=== PATIENT | male | born 1965 | race Caucasian/White ===

== ENCOUNTER 2019-05-09 14:51 | Inpatient (IN) ==
[2019-05-09] MEDS ORDERED: NS 1,000 ML IV ONE ×3 (15:23→19:18)
[2019-05-09] MEDS ORDERED: HUMULIN R IV ONE ×2 (15:23→18:04)
[2019-05-09] MEDS ORDERED: ZOFRAN IV ONE (15:23)
[2019-05-09 15:41] LABS: ALLEN TEST YES; BE -9.6 mmoll (-3.0-3.0); BLOOD TYPE ARTERIAL; HCO3-(ACT) 17.2 mmoll (20.0-26.0); METHB 1.4 % (0.0-1.5); O2(CT) 20.9 mL/dL (15.0-23.0); O2HB 90.9 % (95.0-99.0); PCO2(98.6) 30 mmHg (35-45); PO2(98.6) 95 mmHg (60-100); SAMPLE BLOOD; SAO2 98.2 % (95.0-100.0); THB 16.3 g/dL (11.5-17.4); pH(98.6) 7.31 (7.35-7.45)
[2019-05-09 15:42] LABS: MODALITY ROOM AIR
--- NOTE | 2019-05-09 15:44 | Diag Imaging Result Doc PS360 ---
EXAM: CHEST-2 VIEWS HISTORY: short of breath TECHNIQUE: Chest two views COMPARISON: 02/23/2016 FINDINGS: The lungs are well expanded. The heart is not enlarged. The vessels are not distended. There are no infiltrates. No pleural effusions. IMPRESSION: No acute abnormality. Electronically signed by Vaughn Morris 05/09/2019 3:41 PM
[2019-05-09 16:59] LABS: URINE SOURCE CLEAN CATCH
[2019-05-09 17:04] LABS: BILIRUBIN URINE NEGATIVE (NEGATIVE); BLOOD URINE NEGATIVE (NEGATIVE); COLOR STRAW; GLUCOSE URINE >1000 mg/dL (NEGATIVE); KETONE URINE 100 mg/dL (NEGATIVE); LEUKOCYTES URINE NEGATIVE (NEGATIVE); NITRITE URINE NEGATIVE (NEGATIVE); PROTEIN URINE NEGATIVE (NEGATIVE); SP GRAVITY URINE 1.034; TURBIDITY URINE CLEAR (CLEAR); UR EPITHELIAL CELLS <10 /HPF (<10); URINE BACTERIA NEGATIVE /HPF; URINE RBC <10 /HPF (<10); URINE WBC <10 /HPF (<10); UROBILINOGEN URINE NORMAL (NORMAL)
[2019-05-09 17:19] LABS: BASO# 0.21 X1000 (0.0-0.2); BASO% 1.6 % (0.0-0.8); EOS# 0.61 X1000 (0.0-0.7); EOS% 4.7 % (0.0-10.0); HEMATOCRIT 46.2 % (42.0-52.0); HEMOGLOBIN 16.1 g/dL (14.0-18.0); IMM GRAN# 0.15 X1000 (0.0-0.04); IMM GRAN% 1.2 % (0.0-0.5); LYMPH# 4.63 X1000 (1.2-3.4); LYMPH% 35.9 % (20.5-51.1); MCH 28.9 PG (27-31); MCHC 34.8 g/dL (33-37); MCV 82.9 FL (81-99); MONO# 0.81 X1000 (0.11-0.59); MONO% 6.3 % (1.7-9.3); NEUT% 50.3 % (42.2-75.2); PLT 332 X1000 (130-400); RBC 5.57 XMIL (4.7-6.1); RDW 13.7 % (11.5-14.5); WBC 12.91 X1000 (4.8-10.8)
[2019-05-09 17:29] LABS: INR 0.88; PROTIME 12.6 Seconds (11.0-16.0)
[2019-05-09 17:54] LABS: AGAP 25; ALB/GLOB RATIO 1.2; ALBUMIN 4.2 g/dL (3.5-5.0); ALKALINE PHOSPHATASE 145 U/L (32-122); BUN 15 mg/dL (8-22); CALCIUM 9.3 mg/dL (8.8-10.2); CHLORIDE 88 mmol/L (98-107); CK PROFILE 52 U/L (24-204); COSMO 288; ESTIMATED GFR > 60; GLUCOSE 652 mg/dL (70-104); GOT 34 U/L (10-34); GPT 46 U/L (10-44); LIPASE 43 U/L (13-60); PHOSPHORUS 4.4 mg/dL (2.7-4.5); POTASSIUM 4.9 mmol/L (3.5-5.1); SODIUM 128 mmol/L (136-145); TCO2 15 mmol/L (25-35); TOTAL BILIRUBIN 0.34 mg/dL (0.20-1.00); TOTAL PROTEIN 7.6 g/dL (6.3-8.3)
[2019-05-09] MEDS ORDERED: HUMULIN R 100 UNIT in NS 100 ML IV SCH ×2 (18:00→18:15)
[2019-05-09 18:01] LABS: ACETONE SERUM SMALL (NEGATIVE)
[2019-05-09] MEDS ORDERED: POTASSIUM CHLORIDE 20 MEQ in NS 100 ML IV PRN (18:04)
[2019-05-09] MEDS ORDERED: D50W SYRINGE IV PRN (18:04)
[2019-05-09] MEDS ORDERED: SODIUM PHOSPHATE 30 MMOL in D5W 250 ML IV PRN (18:04)
[2019-05-09] MEDS ORDERED: MAGNESIUM SULFATE 2 GM/S.W.I. 2 GM/50 ML IVPB IV PRN (18:04)
[2019-05-09] MEDS ORDERED: SODIUM BICARBONATE 8.4% 100 MEQ in STERILE WATER INJ. 500 ML IV PRN (18:04)
[2019-05-09] MEDS ORDERED: ZOFRAN IV PRN (18:04)
[2019-05-09] MEDS ORDERED: D5 NS 1,000 ML IV PRN (18:04)
[2019-05-09] MEDS ORDERED: TYLENOL PO PRN (18:04)
[2019-05-09] MEDS ORDERED: LABETALOL IV ONE (18:05)
--- NOTE | 2019-05-09 18:07 | PROVIDER DOCUMENTATION ---
This chart was entered by Destiney Hogan Scribe, acting as scribe for Vasyl Young MD. HPI-General Adult - General Chief Complaint: DKA ALERT Stated Complaint: BLOOD SUGAR LOW Time Seen by Provider: 05/09/19 15:24 Source: patient Allergies/Adverse Reactions: Patient Allergies Allergy/AdvReac Type Severity Reaction Status Date / Time No Known Allergies Allergy Verified 08/28/16 05:41 Home Medications: Home Medication List Medication Instructions Recorded Confirmed Last Taken Type Levothyroxine Sodium [Synthroid] 150 microgm PO QAM 02/23/16 08/28/16 08/27/16 History 150 MICROGM Metoprolol Tartrate 25 mg PO QAM 02/23/16 08/28/16 08/27/16 History 25 MG Cyclobenzaprine [Flexeril] 10 mg PO HS #20 tablet 08/28/16 Unknown Rx Methylprednisolone [Medrol Dosepak] 4 mg PO DIRECTED #1 package 08/28/16 Unknown Rx Naproxen [Naprosyn] 500 mg PO BID #30 tablet 08/28/16 Unknown Rx - History of Present Illness -Gen Adult Nature of Presenting Problems: 53 yowm presents to er w/cc poss DKA alert. pt referred to er for fsbs of 500. pt c/o thirstiness, polyuria (urinating 4-5/hour), blurry vision, dry mouth and nausea. denies fever, cp and sob. pt is a smoker. pt followed by Dr. Whitney. pt has family hx of dm. Review of Systems - Adult - REVIEW OF SYSTEMS - ADULT Constitutional: reports: no symptoms reported. denies: chills, fever, night sweats Eyes: reports: see HPI, blurred vision. denies: double vision, eye pain, redness Ears, Nose, Mouth & Throat: reports: see HPI, other (dry mouth). denies: mouth/dental pain, mouth swelling, hoarseness Cardiovascular: reports: no symptoms reported. denies: chest pain, edema, heart murmur Respiratory: reports: no symptoms reported. denies: dyspnea on exertion, shortness of breath, wheezing Gastrointestinal: reports: see HPI, nausea. denies: diarrhea, rectal bleeding, vomiting Genitourinary: reports: no symptoms reported Musculoskeletal: reports: no symptoms reported Integumentary: reports: no symptoms reported Neurological: reports: no symptoms reported Psychiatric: reports: no symptoms reported Endocrine: reports: see HPI, increased thirst, polyuria. denies: change in skin pigment, excessive sweating, goiter Hematologic/Lymphatic: reports: no symptoms reported Allergic/Immunologic: reports: no symptoms reported All Other Systems: Reviewed and Negative Past History - Adult - PAST MEDICAL HISTORY-ADULT Review of Records: reports: Old Records Reviewed, Nursing Assessment Review, Medications Reviewed, Social history reviewed & non-contributory. Major Childhood Illnesses: reports: denies history Cardiovascular: reports: HTN Respiratory: reports: denies history Gastrointestinal: reports: denies history Obstetrical/Gynecological: reports: denies history Genitourinary: reports: denies history Musculoskeletal: reports: orthopedic injury Neurological: reports: denies history Endocrine/Immune: reports: Diabetes, thyroid disorder Other Conditions: reports: denies history - PRIOR SURGERIES/PROCEDURES Surgical/Procedure History: reports: orthopedic (extremity) (wrist) - IMMUNIZATION STATUS Childhood Immunizations: See Nurse Assessment Flu Vaccine: See Nurse Assessment - FAMILY HISTORY Family History: reviewed, not pertinent - SOCIAL HISTORY Smoking: cigarettes, greater than 1 pack/day Provider spent 3-5 mins advising pt. on dangers of tobacco.: Discussed manners to quit use, and f/u contacts for add'l counseling. Substance Use: marijuana, other (nonprescribed norcos and xanax) Physical Exam-General - PHYSICAL EXAM-ADULT Initial Vital Signs Reviewed: Yes - CONSTITUTIONAL General Appearance: appears well, alert, no apparent distress - EYES Eyes: PERRL/EOMI, pink conjunctivae - HEAD, EARS, NOSE, MOUTH & THROAT HENMT: normocephalic/atraumatic, normal ENT inspection. negative: moist mucous membranes (dry muc mem, dry lips) - NECK Neck: non-tender, full range of motion, supple, normal inspection - RESPIRATORY Respiratory: chest non-tender, lungs clear, normal breath sounds - CARDIOVASCULAR Cardiovascular: normal peripheral pulses, regular rate, rhythm - GASTROINTESTINAL (ABDOMEN) Abdominal Exam: normal bowel sounds, non tender, soft - LYMPHATIC Lymphatic: no adenopathy - MUSCULOSKELETAL Back Exam: normal inspection, no CVA tenderness, no vertebral tenderness Extremity: normal range of motion, non-tender, normal inspection - SKIN Integumentary: normal color, normal turgor, warm/dry. negative: diaphoresis, warm - NEUROLOGIC Neurologic: grossly normal, no motor/sensory deficits - PSYCHIATRIC Psych/Mental Status: normal mood/affect, normal thought content, normal thought process, oriented x 3 Progress - PLAN OF CARE/RESULTS Progress/Plan/Lab Results: Vital Signs - 8 hr 05/09/19 15:03 Temperature 97.6 F Pulse Rate 103 H Respiratory Rate 20 Blood Pressure 142/115 O2 Sat by Pulse Oximetry 96 Laboratory Results - last 24 hr 05/09/19 15:05 POC Glucose 500 H Orders Category Date Time Status Finger Stick Blood Sugar (ED) DIRECTED Care 05/09/19 15:21 Active Saline Loc NOW Care 05/09/19 15:21 Active CHEST-2 VIEWS [RAD] Stat Exams 05/09/19 15:23 Ordered ABG [RESP] Routine Lab 05/09/19 15:21 Ordered ACETONE SERUM [CHEM] Stat Lab 05/09/19 15:22 Uncollected CBC WITH ELECTRONIC DIFF [HEME] Stat Lab 05/09/19 15:22 Uncollected CK PROFILE [SP CHEM] Stat Lab 05/09/19 15:22 Uncollected COMPREHENSIVE METABOLIC PANEL [CHEM] Stat Lab 05/09/19 15:22 Uncollected LIPASE [CHEM] Stat Lab 05/09/19 15:22 Uncollected MAGNESIUM [CHEM] Stat Lab 05/09/19 15:22 Uncollected PRO B-NATRIURETIC PEPTIDE Stat Lab 05/09/19 15:22 Uncollected PROTIME WITH INR [COAG] Stat Lab 05/09/19 15:22 Uncollected TROPONIN T Stat Lab 05/09/19 15:22 Uncollected TSH Stat Lab 05/09/19 15:22 Ordered URINALYSIS W/POSS RFLX CULT [URINALYSIS] Stat Lab 05/09/19 15:23 Uncollected phos [PHOSPHORUS] [CHEM] Stat Lab 05/09/19 15:22 Uncollected 0.9% Sodium Chloride Inj [Ns] 1,000 ml Med 05/09/19 15:23 Active IV 999 mls/hr 0.9% Sodium Chloride Inj [Ns] 1,000 ml Med 05/09/19 15:23 Active IV 999 mls/hr Insulin Human Regular [Humulin R] Med 05/09/19 15:23 Discontinued 10 unit IV NOW ONE Ondansetron [Zofran] Med 05/09/19 15:23 Discontinued 4 mg IV NOW ONE EKG [EKG] Stat Ther 05/09/19 15:21 Ordered Result Diagrams: 05/09/19 15:24 05/09/19 15:24 - REASSESSMENT Reassessment #1 Time Reassessed: 18:05 Status: improving (GIven IVF bolus, insulin IV and placed on insulin drip. Given Labetalol for severe hypertension.) - XRAY 1 XRAY Study: Chest Impression: Normal, See EMR Report (EXAM: CHEST-2 VIEWS HISTORY: short of breath TECHNIQUE: Chest two views COMPARISON: 02/23/2016 FINDINGS: The lungs are well expanded. The heart is not enlarged. The vessels are not distended. There are no infiltrates. No pleural effusions. IMPRESSION: No acute abnormality. Electronically signed by Vaughn Morris 05/09/2019 3:41 PM) Comparison with other Films: no changes - CONSULTS/PCP/HOSPITALIST Notification #1 *Consult/PCP/Hospitalist*: [place] Time Discussed: 18:06 Consult Disposition: Will see in ED Departure - Departure Date of Disposition Decision: 05/09/19 Time of Disposition Decision: 18:06 DIAGNOSIS: New onset type 2 diabetes mellitus, Hypertensive urgency Diabetic ketoacidosis associated with type 2 diabetes mellitus Qualifiers: Diabetes mellitus complication detail: without coma Qualified Code(s): E11.10 - Type 2 diabetes mellitus with ketoacidosis without coma Disposition: ADMITTED INPATIENT 09 Certified Medical Emergency: Emergent Condition: Fair Referrals and Follow-Ups: Michele Whitney Jr, MD [Primary Care Provider] - - Critical Care Note This patient required my direct & personal management of CC.: Yes Total Time (mins): 40 (Metabolic and CVS systems in peril without interventions) Critical Care Statement: This patient required my direct personal management to treat or rule out processes, the absence of which, could potentiallly result in sudden, clinically significant life or limb threatening deterioration. Attestation - Physician/ NATALIA Attestation Patient care was provided by Advanced Practice Provider:: No The physician spent face to face time with patient:: Yes Advanced Practice Provider documentation review:: Supervising physician onsite and consulted in the evaluation and care of this patient. The physician did have a face to face encounter with the patient. This chart was documented by the indicated scribe, (Destiney Hogan Scribdion) and accurately reflects the services I performed and decisions made by me, Vasyl Young MD, as attested by the provider's signature.
[2019-05-09] MEDS: NS 1,000 ML IV SCH (19:00)
[2019-05-09 19:20] LABS: AGAP 23; BUN 14 mg/dL (8-22); CALCIUM 8.9 mg/dL (8.8-10.2); CHLORIDE 93 mmol/L (98-107); COSMO 287; CREATININE 0.9 mg/dL (0.7-1.2); ESTIMATED GFR > 60; GLUCOSE 458 mg/dL (70-104); MAGNESIUM 1.9 mg/dL (1.5-2.7); PHOSPHORUS 3.1 mg/dL (2.7-4.5); POTASSIUM 3.4 mmol/L (3.5-5.1); SODIUM 133 mmol/L (136-145); TCO2 17 mmol/L (25-35)
--- NOTE | 2019-05-09 20:00 | HISTORY AND PHYSICAL ---
CHIEF COMPLAINT: Elevated blood sugar. HISTORY OF PRESENT ILLNESS: This is a 53-year-old male, no previous history, presenting with an elevated blood sugar. He is sent by his primary care physician Dr. Whitney. Reportedly a blood sugar of over 500. He has had blurry vision, not tolerating things very well for the last 2 weeks. He reports polyuria, urinating 4 to 5 times an hour, blurry vision, dry mouth, nausea. Denies any fevers, chest pain. He is a smoker. He has a family history of diabetes in mother and sister. Reportedly, he has had issues with his Synthroid dosing. They have been trying to adjust that as an outpatient and his Synthroid was increased and then decreased over the last month. He reports a 33 pounds weight loss over the last month. PAST MEDICAL HISTORY: 1. Hypertension. 2. Hypothyroidism. PAST SURGICAL HISTORY: He has had a right fracture repair. SOCIAL HISTORY: Pack-a-day smoker. No ethanol. ALLERGIES: Hydromorphone. MEDICATIONS: He is on metoprolol, Synthroid, flexor. REVIEW OF SYSTEMS: Otherwise negative times a 10 point review of systems. PHYSICAL EXAM: VITAL SIGNS: Blood pressure is 171/76, heart rate of 60, blood, temp 98.8 degrees. HEENT: Pupils equal, react to light. Extraocular movements are intact. EARS, NOSE, AND THROAT EXAM: He has moist mucous membranes. He did not have dry mucous membranes everything looked pretty good. NECK: Exam was supple. CARDIOVASCULAR: Regular rate and rhythm. PULMONARY: Bilateral breath sounds clear to auscultation. GI: Was soft, nontender, nondistended. Bowel sounds are positive. EXTREMITY EXAM: No clubbing or cyanosis. LYMPHATIC EXAM: No peripheral edema. NEUROLOGICAL: Nonfocal. LABORATORY DATA: White count 12. Hemoglobin and hematocrit 16 and 46, platelets 332,000. PH 7.31, pCO2 of 30, PaO2 95. Sodium 128, bicarb of 15, glucose 652. AST and ALT of 34 and 46. TSH of 9.73. Acetone was small. ASSESSMENT: 1. A 53-year-old male with history of new onset diabetes, diabetic ketoacidosis. We will continue IV fluids and follow closely. Pursue insulin drip until he corrects and we will continue to monitor closely. Disposition: Continue to follow. 2. Hypertension. We will continue lisinopril and follow closely. 3. Hypertension. We will control medications and follow. 4. We will continue to follow closely. cc: MD Michele Maya MD
[2019-05-09] MEDS ORDERED: NICODERM PATCH TD PRN (21:28)
[2019-05-09 22:38] LABS: AGAP 13; BUN 12 mg/dL (8-22); CALCIUM 7.7 mg/dL (8.8-10.2); CHLORIDE 102 mmol/L (98-107); COSMO 278; CREATININE 0.8 mg/dL (0.7-1.2); ESTIMATED GFR > 60; GLUCOSE 314 mg/dL (70-104); MAGNESIUM 1.7 mg/dL (1.5-2.7); PHOSPHORUS 2.1 mg/dL (2.7-4.5); POTASSIUM 3.6 mmol/L (3.5-5.1); SODIUM 133 mmol/L (136-145); TCO2 18 mmol/L (25-35)
[2019-05-10] MEDS: NS 1,000 ML IV SCH ×2 (02:25→17:56)
[2019-05-10 02:40] LABS: AGAP 14; BUN 10 mg/dL (8-22); CALCIUM 7.9 mg/dL (8.8-10.2); CHLORIDE 102 mmol/L (98-107); COSMO 276; CREATININE 0.6 mg/dL (0.7-1.2); ESTIMATED GFR > 60; GLUCOSE 222 mg/dL (70-104); MAGNESIUM 1.7 mg/dL (1.5-2.7); PHOSPHORUS 2.1 mg/dL (2.7-4.5); POTASSIUM 3.5 mmol/L (3.5-5.1); SODIUM 135 mmol/L (136-145); TCO2 19 mmol/L (25-35)
[2019-05-10 06:42] LABS: AGAP 13; BUN 9 mg/dL (8-22); CALCIUM 7.7 mg/dL (8.8-10.2); CHLORIDE 105 mmol/L (98-107); COSMO 278; CREATININE 0.6 mg/dL (0.7-1.2); ESTIMATED GFR > 60; GLUCOSE 200 mg/dL (70-104); MAGNESIUM 1.8 mg/dL (1.5-2.7); PHOSPHORUS 2.3 mg/dL (2.7-4.5); POTASSIUM 3.5 mmol/L (3.5-5.1); SODIUM 137 mmol/L (136-145); TCO2 19 mmol/L (25-35)
[2019-05-10] MEDS ORDERED: POTASSIUM CHLORIDE 10% LIQUID PO ONE (07:50)
[2019-05-10 10:53] LABS: AGAP 14; BUN 7 mg/dL (8-22); CALCIUM 8.1 mg/dL (8.8-10.2); CHLORIDE 102 mmol/L (98-107); COSMO 275; CREATININE 0.7 mg/dL (0.7-1.2); ESTIMATED GFR > 60; GLUCOSE 296 mg/dL (70-104); MAGNESIUM 1.9 mg/dL (1.5-2.7); PHOSPHORUS 2.8 mg/dL (2.7-4.5); POTASSIUM 4.4 mmol/L (3.5-5.1); SODIUM 133 mmol/L (136-145); TCO2 17 mmol/L (25-35)
--- NOTE | 2019-05-10 15:58 | PROGRESS NOTE ---
DATE: 05/10/2019 SUBJECTIVE: The patient states that he feels a little bit better today. He states that he is hungry. He is tolerating a full liquid diet. He remains on the insulin drip. OBJECTIVE: Vital Signs: Temperature 98.1 degrees, blood pressure 137/72, heart rate 65, respirations 13, O2 saturation is 97% on room air. General: This is an overweight male lying in bed, in no acute distress. Heart: S1, S2 normal. Regular rate and rhythm. Lungs: Clear to auscultation bilaterally. Abdomen: Positive bowel sounds. Soft, nontender, nondistended. Extremities: No edema. No cyanosis. Neurologic: The patient is alert and oriented x4. LABS: Sodium 133, potassium 4.4, chloride 102, CO2 17, BUN 7, creatinine 0.7, glucose 296. ASSESSMENT AND PLAN: 1. Diabetic ketoacidosis in the setting of newly diagnosed diabetes mellitus type 2. The patient is currently on an insulin drip. We will continue with the insulin drip until the anion gap closes. We will then transition the patient to long-acting insulin. We will continue to monitor the BMP every 4 hours while on the insulin drip. We will also consult with the dietitian for dietary recommendations for the patient. 2. Tobacco dependence. The patient has been counseled about smoking cessation. 3. Obesity. The patient has been counseled about weight loss and proper diet. 4. Deep vein thrombosis prophylaxis. Will start the patient on Lovenox. cc: Jane Cerda MD
[2019-05-10 16:05] LABS: AGAP 13; ALBUMIN 3.2 g/dL (3.5-5.0); BUN 5 mg/dL (8-22); CALCIUM 8.3 mg/dL (8.8-10.2); CHLORIDE 99 mmol/L (98-107); COSMO 267; CREATININE 0.6 mg/dL (0.7-1.2); ESTIMATED GFR > 60; GLUCOSE 232 mg/dL (70-104); MAGNESIUM 1.8 mg/dL (1.5-2.7); PHOSPHORUS 1.5 mg/dL (2.7-4.5); POTASSIUM 3.8 mmol/L (3.5-5.1); SODIUM 131 mmol/L (136-145); TCO2 19 mmol/L (25-35)
[2019-05-10] MEDS ORDERED: SODIUM PHOSPHATE 40 MMOL in NS 250 ML IV ONE (16:11)
[2019-05-10] MEDS ORDERED: LEVEMIR SUBQ ONE (16:45)
[2019-05-10] MEDS ORDERED: INSULIN PEN NEEDLES ONE (17:14)
[2019-05-10] MEDS: NORVASC PO SCH (17:56)
[2019-05-10] MEDS: HUMULIN R SUBQ SCH (20:32)
[2019-05-10] MEDS ORDERED: LEVEMIR SUBQ SCH (21:00)
[2019-05-11 05:39] LABS: HEMATOCRIT 39.7 % (42.0-52.0); HEMOGLOBIN 13.7 g/dL (14.0-18.0); MCH 28.9 PG (27-31); MCHC 34.5 g/dL (33-37); MCV 83.8 FL (81-99); MPV 9.3 FL (7.4-10.4); RBC 4.74 XMIL (4.7-6.1); RDW 13.9 % (11.5-14.5); WBC 7.89 X1000 (4.8-10.8)
[2019-05-11 06:03] LABS: AGAP 12; ALBUMIN 3.4 g/dL (3.5-5.0); BUN 7 mg/dL (8-22); CALCIUM 8.4 mg/dL (8.8-10.2); CHLORIDE 100 mmol/L (98-107); COSMO 272; CREATININE 0.7 mg/dL (0.7-1.2); ESTIMATED GFR > 60; GLUCOSE 244 mg/dL (70-104); PHOSPHORUS 2.8 mg/dL (2.7-4.5); POTASSIUM 3.7 mmol/L (3.5-5.1); SODIUM 133 mmol/L (136-145); TCO2 21 mmol/L (25-35)
[2019-05-11] MEDS: SYNTHROID PO SCH (06:16)
[2019-05-11] MEDS: HUMULIN R SUBQ SCH ×4 (06:16→21:27)
[2019-05-11] MEDS: NS 1,000 ML IV SCH (06:27)
[2019-05-11] MEDS ORDERED: LEVEMIR SUBQ SCH (09:00)
[2019-05-11] MEDS ORDERED: PRINIVIL PO SCH (09:00)
[2019-05-11] MEDS: NORVASC PO SCH (09:25)
[2019-05-11] MEDS: COZAAR PO SCH (09:25)
[2019-05-11] MEDS: HUMULIN 70/30 SUBQ SCH ×2 (09:25→21:28)
[2019-05-11] MEDS: LOVENOX SUBQ SCH (09:27)
--- NOTE | 2019-05-11 12:35 | Diag Imaging Result Doc PS360 ---
EXAM: CT THORAX W/O CONTRAST HISTORY: dyspnea/heavy smoker TECHNIQUE: CT chest without contrast COMPARISON: None. FINDINGS: No pleural effusions. No thoracic aortic aneurysm. Prominent atherosclerosis, particularly in the coronary arteries. There are small mediastinal nodes. No infiltrates or consolidation. No bronchiectasis. No lung mass identified. Old rib fractures. Prominent bone spurring in the thoracic spine. IMPRESSION: Prominent coronary artery atherosclerosis. This exam was performed using automated exposure control, adjustment of mA or kV according to patient size, and/or use of iterative reconstruction technique. Electronically signed by Vaughn Morris 05/11/2019 12:33 PM
--- NOTE | 2019-05-11 12:39 | Diag Imaging Result Doc PS360 ---
EXAM: CT ABD/PELVIS W/ORAL CONT ONLY HISTORY: hernia TECHNIQUE: CT abdomen and pelvis with oral contrast COMPARISON: None. FINDINGS: No prominent abdominal or pelvic wall hernia. No definite inguinal hernia. No hiatal hernia although there is thickening to the wall of the distal esophagus. The gallbladder is contracted. No calcified stones. No focal hepatic abnormality identified on this noncontrasted exam. Normal spleen, pancreas, adrenal glands, and kidneys. No renal stones or hydronephrosis. Prominent atherosclerosis. No aortic aneurysm. No bowel obstruction. Normal appendix. No abscess. The urinary bladder is distended and appears normal. The prostate is not enlarged. No ascites. L5 pars defects. IMPRESSION: 1.Distal esophageal wall thickening which may indicate reflux 2.Prominent atherosclerosis This exam was performed using automated exposure control, adjustment of mA or kV according to patient size, and/or use of iterative reconstruction technique. Electronically signed by Vaughn Morris 05/11/2019 12:36 PM
--- NOTE | 2019-05-11 14:44 | EKG Report ---
Test Performed on : 05/11/2019 2:33:31 PM Test Reason : chest pain Blood Pressure : / mmHG Vent. Rate : 068 BPM Atrial Rate : 068 BPM P-R Int : 150 ms QRS Dur : 096 ms QT Int : 414 ms P-R-T Axes : 043 064 019 degrees QTc Int : 440 ms Normal sinus rhythm. Septal infarct , age undetermined Abnormal ECG When compared with ECG of 23-FEB-2016 15:03, Septal infarct is now present Confirmed by Paul Lozada MD ([id number]) on 05/11/2019 5:04:01 PM
[2019-05-11] MEDS ORDERED: INSULIN PEN NEEDLES ONE (21:26)
--- NOTE | 2019-05-11 21:41 | PROGRESS NOTE ---
DATE: 05/11/2019 SUBJECTIVE: The patient is resting comfortably in bed. He complains of occasional chest pain, but otherwise states that he feels better than he did when he was initially admitted. OBJECTIVE: Vital Signs: Temperature 98.3 degrees, blood pressure 141/90, heart rate 83, respirations 15, O2 saturation is 100% on room air. General: This is an elderly male lying in bed, in no acute distress. Heart: S1, S2. Normal. Lungs: Clear to auscultation bilaterally. No wheezing. No rales. Abdomen: Positive bowel sounds. Soft, nontender, nondistended. Extremities: No edema. No cyanosis. Neurologic: The patient is alert and oriented x4. LABORATORY DATA: Sodium 133, potassium 3.7, chloride 100, CO2 is 21, BUN 7, creatinine 0.7, glucose 244, magnesium 1.9, phosphorus 2.8. Troponin negative. DIAGNOSTIC DATA: CT of the chest shows prominent coronary artery atherosclerosis, particularly in the coronary arteries. ASSESSMENT AND PLAN: 1. Diabetic ketoacidosis. Resolved. The patient's blood glucoses are running in the low to mid 200s. We will continue to adjust the insulin dosage. The patient has also been seen by the dietitian for diet recommendations. 2. Chest pain with coronary artery disease. The patient's chest CT revealed atherosclerosis. We will order a stress test to be done tomorrow as well as an echocardiogram. I will start the patient on aspirin and Cozaar. We will also check a lipid profile in the morning. 3. Hypertension. Continue on Cozaar and Norvasc. 4. Hypothyroidism. Continue on Synthroid. 5. Abdominal hernia. The CT scan is noted to be unremarkable. We will continue to monitor this closely. 6. Deep vein thrombosis prophylaxis. Continue with Lovenox. cc: Jane Cerda MD MTDD
[2019-05-12 05:35] LABS: HEMATOCRIT 39.2 % (42.0-52.0); HEMOGLOBIN 13.4 g/dL (14.0-18.0); MCH 29.3 PG (27-31); MCHC 34.2 g/dL (33-37); MCV 85.6 FL (81-99); MPV 9.3 FL (7.4-10.4); RBC 4.58 XMIL (4.7-6.1); RDW 14.2 % (11.5-14.5); WBC 7.74 X1000 (4.8-10.8)
[2019-05-12] MEDS: SYNTHROID PO SCH ×2 (05:43→06:13)
[2019-05-12] MEDS: PRILOSEC PO SCH ×2 (05:43→06:13)
[2019-05-12 05:54] LABS: AGAP 10; ALBUMIN 3.4 g/dL (3.5-5.0); BUN 6 mg/dL (8-22); CALCIUM 8.8 mg/dL (8.8-10.2); CHLORIDE 107 mmol/L (98-107); COSMO 280; CREATININE 0.7 mg/dL (0.7-1.2); ESTIMATED GFR > 60; GLUCOSE 83 mg/dL (70-104); PHOSPHORUS 2.9 mg/dL (2.7-4.5); SODIUM 142 mmol/L (136-145); TCO2 25 mmol/L (25-35)
[2019-05-12 05:59] LABS: CHOLESTEROL 239 mg/dL (0-200); HDL 24 mg/dL (35-55); TRIGLYCERIDES 455 mg/dL (39-160)
[2019-05-12] MEDS: HUMULIN R SUBQ SCH ×4 (06:12→21:13)
[2019-05-12] MEDS ORDERED: POTASSIUM CHLORIDE 60 MEQ in NS 500 ML IV ONE (07:13)
--- NOTE | 2019-05-12 07:40 | EKG Report ---
Test Performed on : 05/12/2019 06:58:10 AM Test Reason : chest pain Blood Pressure : / mmHG Vent. Rate : 068 BPM Atrial Rate : 068 BPM P-R Int : 148 ms QRS Dur : 102 ms QT Int : 404 ms P-R-T Axes : 033 -13 038 degrees QTc Int : 429 ms Normal sinus rhythm. Normal ECG When compared with ECG of 11-MAY-2019 14:33, Questionable change in QRS axis Confirmed by Paul Lozada MD ([id number]) on 05/15/2019 11:28:25 AM
[2019-05-12] MEDS ORDERED: LEXISCAN ONE (08:36)
--- NOTE | 2019-05-12 09:55 | ECHO REPORT ---
ORDER DATE: 05/11/2019 INTERPRETING PHYSICIAN: Chacorta Holcomb MD. CLINICAL INDICATIONS: 53-year-old male with chest pain, coronary disease. M-MODE MEASUREMENTS: Left ventricle end diastole: 4.0 cm. Left ventricle end systole: 2.7 cm. Posterior wall: 1.1 cm. Interventricular septum: 1.1 cm. Left atrium: 2.4 cm. Aortic diameter: 3.8 cm. SUMMARY OF 2-DIMENSIONAL IMAGIN. The left ventricular function appears to be normal. There is a question of hypokinesis of the distal interventricular septum in the 4-chamber view. 2. Otherwise, ejection fraction of 59%. 3. The right ventricle appears to be normal. 4. Pulmonic valve looks grossly normal. Color flow mapping unremarkable. 5. The tricuspid valve shows trace regurgitation. 6. Pulmonary pressure is estimated at 30 mmHg. 7. The right-sided chambers are not dilated. 8. The mitral valve looks normal with mild degree of regurgitation. 9. Pulse wave Doppler of mitral inflow shows mild reversal of the E/A ratio, ratio 0.86. 10.The tissue Doppler of septal and lateral mitral annulus averages 7 cm. 11.There is no diastolic dysfunction. 12.The aortic valve shows some sclerosis of the cusps without stenosis, no regurgitation. 13.There is no pericardial effusion, no mass, and no thrombus. Clinical correlation is recommended. cc: MD Jane Cristina MD
[2019-05-12] MEDS: COZAAR PO SCH (12:21)
[2019-05-12] MEDS: ASPIRIN EC PO SCH (12:21)
[2019-05-12] MEDS: HYGROTON PO SCH (12:21)
[2019-05-12] MEDS: NORVASC PO SCH (12:21)
[2019-05-12] MEDS: HUMULIN 70/30 SUBQ SCH ×2 (12:23→21:12)
[2019-05-12] MEDS: LOVENOX SUBQ SCH (12:24)
--- NOTE | 2019-05-12 13:10 | Diag Imaging Result Document ---
PROCEDURE NAME: MYOCARDIAL PERF SCAN, STR/REST - 05/12/2019 SUMMARY: The patient was administered 14.1 mCi of technetium-99m sestamibi, after which resting cardiac images were obtained. The patient was subsequently stressed using a walking Lexiscan protocol, and was administered 0.4 mg of Lexiscan intravenously. The heart rate went from 96 beats per minute to 115 beats per minute, while the blood pressure went from 157/90 to 118/78. With Lexiscan, the patient denied chest discomfort. Following the administration of Lexiscan, the patient was administered 41.2 mCi of technetium-99m sestamibi, after which gated stress cardiac images were obtained. Baseline ECG demonstrated normal sinus rhythm and delayed precordial R-wave progression. With walking Lexiscan protocol, there were no diagnostic ST-segment changes. SPECT images were reconstructed in the short, horizontal, and vertical long axis. Review of these images demonstrated a medium-sized area of [id number] diminished activity in the inferior wall on stress images, which improves on resting images. Gated images demonstrate a calculated left ventricular ejection fraction of 62% with symmetrical wall motion/thickening. CONCLUSIONS: 1. Adequate cardiac stress with walking Lexiscan protocol. 2. Clinically negative for chest pain. 3. Electrocardiographically negative for Lexiscan-induced myocardial ischemia. 4. Lexiscan sestamibi images demonstrate medium-sized area of [id number] reversibility in the inferior wall, suggesting inducible myocardial ischemia in this region. Normal left ventricular systolic function demonstrated. Clinical correlation recommended. cc: MD Jane Sanchez MD
[2019-05-12 13:44] LABS: HEPATITIS PROFILE ACUTE SEE COMMENTS
[2019-05-12 13:58] LABS: HEMOGLOBIN A1C 16.2 % (4.8-6.0)
[2019-05-12] MEDS ORDERED: KLOR-CON PO ONE (14:29)
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
--- NOTE | 2019-05-12 20:50 | PROGRESS NOTE ---
DATE: 05/12/2019 SUBJECTIVE: The patient is resting comfortably in bed. He states that he is starting to feel a lot better now that his blood sugars are improving. OBJECTIVE: Vital Signs: Temperature 97.9 degrees, blood pressure 132/90, heart rate 78, respirations 23, O2 saturation 98% on room air. General: This is a morbidly obese male lying in bed in no acute distress. Heart: S1, S2 normal. Regular rate and rhythm. Lungs: Clear to auscultation bilaterally. Abdomen: Positive bowel sounds. Soft, nontender, nondistended. Extremities: No edema. No cyanosis. Neurologic: The patient is alert and oriented x4. LABS: Hemoglobin 13, hematocrit 39. Sodium 142, potassium 3, chloride 107, CO2 25, BUN 6, creatinine 0.7, glucose 83. ASSESSMENT AND PLAN: 1. Diabetic ketoacidosis. Resolved. 2. Uncontrolled insulin-dependent diabetes mellitus type 2. We will continue with long-acting insulin. We will also add metformin. The patient has been counseled by the dietitian about weight loss and proper diet. 3. Coronary artery disease. The patient had a stress test done today that revealed inducible myocardial ischemia in the inferior wall. We will await further recommendations from the custom protection officer. Continue on the current cardiac medications. 4. Hepatitis C. We will consult with GI. 5. Thickened esophagus. We will await further recommendations from the etched circuit processor. 6. Hypertension. Continue on the current antihypertensive regimen. 7. Hypothyroidism. Continue on Synthroid. 8. Hyperlipidemia. Continue on lipitor. cc: Jane Cerda MD MTDD
[2019-05-12] MEDS ORDERED: LIPITOR PO SCH (21:00)
[2019-05-12] MEDS ORDERED: MELATONIN PO ONE (22:12)
[2019-05-13 05:59] LABS: HEMATOCRIT 41.8 % (42.0-52.0); HEMOGLOBIN 14.2 g/dL (14.0-18.0); MCH 29.5 PG (27-31); MCV 86.9 FL (81-99); MPV 9.6 FL (7.4-10.4); RBC 4.81 XMIL (4.7-6.1); RDW 14.5 % (11.5-14.5); WBC 8.29 X1000 (4.8-10.8)
[2019-05-13] MEDS: SYNTHROID PO SCH (06:15)
[2019-05-13] MEDS: PRILOSEC PO SCH (06:15)
[2019-05-13] MEDS: HUMULIN R SUBQ SCH (06:16)
[2019-05-13 06:38] LABS: AGAP 12; ALB/GLOB RATIO 1.2; ALBUMIN 3.5 g/dL (3.5-5.0); ALKALINE PHOSPHATASE 99 U/L (32-122); BUN 6 mg/dL (8-22); CALCIUM 9.1 mg/dL (8.8-10.2); CHLORIDE 103 mmol/L (98-107); COSMO 277; CREATININE 0.7 mg/dL (0.7-1.2); ESTIMATED GFR > 60; GLUCOSE 160 mg/dL (70-104); GOT 52 U/L (10-34); GPT 52 U/L (10-44); POTASSIUM 3.6 mmol/L (3.5-5.1); SODIUM 138 mmol/L (136-145); TCO2 23 mmol/L (25-35); TOTAL BILIRUBIN 0.31 mg/dL (0.20-1.00); TOTAL PROTEIN 6.4 g/dL (6.3-8.3)
[2019-05-13] MEDS ORDERED: LOPRESSOR PO SCH (07:00)
[2019-05-13 08:00] VITALS: BP 114/77
[2019-05-13] MEDS ORDERED: GLUCOPHAGE PO SCH (08:00)
[2019-05-13] MEDS: ASPIRIN EC PO SCH (08:50)
[2019-05-13] MEDS: NORVASC PO SCH (08:50)
[2019-05-13] MEDS: HYGROTON PO SCH (08:50)
[2019-05-13] MEDS: COZAAR PO SCH (08:50)
[2019-05-13] MEDS: HUMULIN 70/30 SUBQ SCH (08:51)
[2019-05-13] MEDS: LOVENOX SUBQ SCH (08:54)
[2019-05-17 11:16] LABS: HCV BY PCR SEE COMMENTS
--- NOTE | 2019-05-17 13:39 | DISCHARGE SUMMARY ---
ADMISSION DATE: 05/09/2019 DISCHARGE DATE: 05/13/2019 FINAL DISCHARGE DIAGNOSES: 1. Diabetic ketoacidosis. 2. Uncontrolled insulin-dependent diabetes mellitus type 2. 3. Coronary artery disease. 4. Hepatitis C. 5. Esophageal thickening. 6. Hypertension. 7. Hypothyroidism. 8. Obesity. 9. Tobacco dependence CONSULTATIONS: Cardiology consultation with Dr. Holcomb. IMAGIN. CT of the abdomen and pelvis which revealed distal esophageal wall thickening which may indicate reflux. 2. Myocardial perfusion scan which revealed a medium-sized area of mid to moderate reversibility in the inferior wall. 3. Echocardiogram which revealed an ejection fraction of 59%. HOSPITAL COURSE: Mr. Cortez is a 53-year-old male who initially presented to the ER with a chief complaint of polyuria, blurred vision, dry mouth, as well as nausea and vomiting. On admission, the patient was noted to have a blood sugar of 500. He was also noted to have an anion gap and was diagnosed with DKA. The patient was admitted to the CICU and started on IV fluids and an insulin drip. The patient's blood sugars and acid-base status improved. The patient was transitioned to long-acting insulin. A CT of the abdomen and pelvis was done due to the patient's complaints of an abdominal hernia. It revealed prominent atherosclerosis. The patient also had a chest CT done that again revealed prominent coronary artery atherosclerosis. As a result, a stress test was ordered and cardiology was consulted. The patient also admitted to being a heavy smoker. Ultimately, the myocardial perfusion scan did show a reversible defect in the inferior wall region. Dr. Holcomb then made arrangements and the patient was transferred to [facility] for a left heart catheterization. DISCHARGE MEDICATIONS: 1. Lisinopril 10 mg p.o. daily. 2. Humulin 70/30, 40 units subcutaneous twice a day. 3. Norvasc 10 mg p.o. daily. 4. Synthroid 125 mcg oral daily. DISPOSITION: The patient was transferred to [facility]. cc: Jane Cerda MD MTDD
== END 2019-05-13 09:30 | disposition short-term general hospital (02) | DRG 639 ==
LOC: ED 14:51 → EDIPHOLD 21:00 → SUATTDRO 21:00 → 3S 22:47
PROVIDERS: ATTEND Internal Medicine
CPT/HCPCS: 71020; 71046; 71250; 74176; 78452; 80048; 80053; 80061; 80069; 80074; 81001; 82009; 82040; 82550; 82805; 82948; 83036; 83690; 83735; 83880; 84100; 84439; 84443; 84484; 85025; 85027; 85610; 87522; 93005; 93010; 93017; 93306; 96361; 96374; 99285; 99291; A9270; A9500; J1650; J2405; J2785; J3475; J3480; J7030; J7040; J7042; J7050; XXXXX